=== PATIENT | male | born 1950 | race Caucasian/White ===

== ENCOUNTER 2016-07-09 14:40 | Emergency (ER) | payer BC ==
[2016-07-09] MEDS ORDERED: Aspirin 81 MG Tab.Chew ONE (14:54)
[2016-07-09] MEDS ORDERED: Aspirin 81 MG Tab.Chew CHEW ONE (14:54)
--- NOTE | 2016-07-09 15:13 | EDM.PDOC ---
ED HISTORY OF PRESENT ILLNESS - General Time Seen by Provider: 07/09/16 14:53 Source of Information: Reports: Patient History Limitations: Reports: No limitations - History of Present Illness INITIAL COMMENTS - FREE TEXT/NARRATIVE: Patient presents with chest pain. It started around midnight while lying in bed. It was a sharp, burning pain across the lower anterior chest and lasted for several minutes. He slept well and got up this morning and had the pain again. He took aspirin 81 mg which seemed to help. He went to work but the pain persisted so he went to the clinic and was sent to ER. The pain quit on arrival to ER. He said most recently the pain was left lateral inferior ribcage area. When I had him sit up and take deep breaths for lung exam it triggered the sharp, burning pain in lower left that lasted a couple second; this is the same pain he says. He denies any heavy, crushing or squeezing pain. He denies having this pain in the past; he also denies heart problems except he had an angiogram 3-4 years ago and there was no blockage. He usually has some lower leg swelling and took a water pill for awhile which was discontinued after causing a rash. He doesn't have TEDS. He denies CHF. - Related Data Allergies/ADRs: Allergies Allergy/AdvReac Type Severity Reaction Status Date / Time ciprofloxacin [From Cipro] Allergy Rash Verified 07/09/16 14:51 sulfamethoxazole Allergy Rash Verified 07/09/16 14:51 [From Bactrim] trimethoprim [From Bactrim] Allergy Rash Verified 07/09/16 14:51 Home Meds: Home Meds Aspirin 81 mg PO BRK 07/09/16 [History] Losartan [Cozaar] 100 mg PO DAILY 07/09/16 [History] [place]-3 Fatty Acids [Fish Oil] 300 mg PO DAILY 07/09/16 [History] amLODIPine Besylate [Amlodipine Besylate] 10 mg PO DAILY 07/09/16 [History] ED ROS GENERAL - Review of Systems Review Of Systems: See Below Constitutional: Denies: fever, chills, malaise HEENT: Denies: Vision change Respiratory: Denies: Shortness of Breath, Cough Cardiovascular: Reports: Chest pain. Denies: Lightheadedness, Syncope Endocrine: Denies: fatigue GI/Abdominal: Reports: Constipation (sometimes). Denies: Abdominal pain, Diarrhea, Vomiting : Denies: dysuria, flank pain Musculoskeletal: Denies: neck pain, shoulder pain Skin: Denies: cyanosis, jaundice, mottled, pallor, diaphoresis Neurological: Denies: Confusion, Dizziness, Headache, Seizure, Syncope, Trouble Speaking, Difficulty Walking Psychiatric: Denies: Agitation, Anxiety, Confusion ED EXAM, GENERAL - Physical Exam Exam: See Below Exam Limited By: No limitations General Appearance: alert, WD/WN, no apparent distress Eye Exam: bilateral eye: EOMI, normal inspection, PERRL Ears: normal external exam, hearing grossly normal Nose: normal inspection Throat/Mouth: Normal lips, Normal voice, No airway compromise Head: atraumatic, normocephalic Neck: normal inspection, supple, non-tender, full range of motion. No: carotid bruit Respiratory/Chest: no respiratory distress, lungs clear, normal breath sounds, no accessory muscle use Cardiovascular: normal peripheral pulses, regular rate, rhythm, no murmur Peripheral Pulses: 2+: carotid (L), carotid (R), radial (L), radial (R), posterior tibial (L), posterior tibial (R) GI/Abdominal: normal bowel sounds, soft, non tender, no organomegaly, no distention Back Exam: No: CVA tenderness (L), CVA tenderness (R) Extremities: normal range of motion, non-tender, pedal edema (2-3 bilat). No: increased warmth, mottled, pallor, redness Neurological: alert, oriented, normal cognition, no motor/sensory deficits Psychiatric: normal affect, normal mood Skin Exam: Warm, Dry, Intact, Normal color, No rash Course - Vital Signs Last Recorded V/S: Last Vital Signs Temp 97 F 07/09/16 14:59 Pulse 67 07/09/16 15:50 Resp 19 07/09/16 15:50 BP 176/77 H 07/09/16 15:50 Pulse Ox 94 L 07/09/16 15:50 - Orders/Labs/Meds Orders: Active Orders 24 hr Category Date Time Status EKG Documentation Completion [RC] ASDIRECTED Care 07/09/16 14:48 Active Chest 2V [CR] Stat Exams 07/09/16 15:13 Ordered EKG 12 Lead [EK] Routine Ther 07/09/16 14:48 Ordered Labs: Laboratory Tests 07/09/16 07/09/16 Range/Units 14:50 14:50 WBC 6.9 (5.0-10.0) 10^3/uL RBC 5.00 (4.50-6.00) 10^6/uL Hgb 14.9 (13.0-17.0) g/dL Hct 44.5 (40.0-52.0) % MCV 89.1 (82.0-92.0) fL MCH 29.7 (27.0-31.0) pg MCHC 33.4 (32.0-36.0) g/dL RDW 12.3 (11.5-14.5) % Plt Count 280 (150-300) 10^3/uL MPV 7.1 L (7.4-10.4) fL Neut % (Auto) 61.6 (50.0-70.0) % Lymph % (Auto) 28.7 (20.0-40.0) % [place] % (Auto) 6.9 (2.0-8.0) % Eos % (Auto) 2.5 (1.0-3.0) % Baso % (Auto) 0.3 (0.0-1.0) % Neut # (Auto) 4.2 (2.5-7.0) 10^3/uL Lymph # (Auto) 2.0 (1.0-4.0) 10^3/uL [place] # (Auto) 0.5 (0.1-0.8) 10^3/uL Eos # (Auto) 0.2 (0.1-0.3) 10^3/uL Baso # (Auto) 0.0 (0.0-0.1) 10^3/uL Sodium 143 (136-145) mmol/L Potassium 4.1 (3.3-5.3) mmol/L Chloride 105 (98-115) mmol/L Carbon Dioxide 30.4 (21.0-32.0) mmol/L BUN 15 (6-25) mg/dL Creatinine 0.93 (0.51-1.17) mg/dL Est Cr Clr Drug Dosing 95.91 mL/min Estimated GFR (MDRD) > 60 mL/min Glucose 122 H (70-110) mg/dL Calcium 8.8 (8.7-10.3) mg/dL Total Bilirubin 0.6 (0.2-1.0) mg/dL AST 26 (15-37) U/L ALT 36 (12-78) U/L Alkaline Phosphatase 133 H (46-116) IU/L Troponin I < 0.04 (0.00-0.070) ng/mL Total Protein 7.3 (6.4-8.2) g/dL Albumin 4.15 (3.00-4.80) g/dL Meds: Medications Discontinued Medications Generic Name Dose Route Start Last Admin Trade Name Abhishek PRN Reason Stop Dose Admin Aspirin Confirm 07/09/16 14:54 07/09/16 14:57 Aspirin Administered 07/09/16 14:55 324 mg Dose Administration 324 mg .ROUTE .STK-MED ONE - Re-Assessments/Exams Free Text/Narrative Re-Assessment/Exam: 07/09/16 16:33 Discussed findings with patient. This doesn't appear to be cardiac in nature. I feel it is most likely pleuritic pain. Advised follow up with his PCP in a couple days but should recheck sooner if worsening or go to ER. Pt agreed. I also advised discussing his lower extremity edema with his PCP for possible compression stockings. Pt discharged in stable condition. Departure - Departure Time of Disposition: 16:30 Disposition: Home, Self-Care 01 Condition: good Clinical Impression: Chest pain, pleuritic Additional Instructions: 1. You can take Ibuprofen 600 mg up to three times a day as needed for the pain. 2. Follow up with your PCP in a couple days or sooner if worsening. - My Orders Last 24 Hours: My Active Orders 07/09/16 14:48 EKG Documentation Completion [RC] ASDIRECTED EKG 12 Lead [EK] Routine 07/09/16 15:13 Chest 2V [CR] Stat - Assessment/Plan Last 24 Hours: My Active Orders 07/09/16 14:48 EKG Documentation Completion [RC] ASDIRECTED EKG 12 Lead [EK] Routine 07/09/16 15:13 Chest 2V [CR] Stat
[2016-07-09 15:35] LABS: CHLORIDE,CL 105 mmol/L (98-115); SODIUM,NA 143 mmol/L (136-145)
[2016-07-09 15:53] VITALS: BP 176/77
== END 2016-07-09 16:45 | disposition home or self-care (01) ==
LOC: KA.ED 14:40
DX: R07.81 Pleurodynia (principal); Z88.8 Allergy status to other drugs, medicaments and biological substances; Z88.2 Allergy status to sulfonamides
CPT/HCPCS: 36415; 71020; 80053; 84484; 85025; 93005; 99285; A9270